=== PATIENT | female | born 1985 | race Hispanic/Latino ===

== ENCOUNTER 2016-10-21 23:22 | Emergency (ER) | payer OTHER, SELFPAY ==
[2016-10-21 23:59] LABS: Bacteria/HPF 4+ HPF (None Seen); Bilirubin Negative (Negative); Blood, Urine Trace (Negative); Clarity Slightly Cloudy (Clear); Glucose, Urine (Dipstick) Negative (Negative); Leukocyte Small (Negative); Nitrite Negative (Negative); Protein, Urine (Dipstick) Negative (Neg-Trace); Renal Epithelial 0-3 HPF (0-3); Transitional Epithelial 0-3 HPF (0-3); Urobilinogen 0.2 mg/dL (0.2-1.0); WBC/HPF 21-50 HPF (0-3); Yeast-All Forms 1+ HPF (None Seen); pH, Urine 7.5 (5.0-9.0)
[2016-10-22] MEDS ORDERED: Ondansetron ODT 4 MG TAB ONE (00:23)
[2016-10-22] MEDS ORDERED: Nitrofurantoin Monohyd/M-Cryst 100 MG CAP ONE (00:23)
--- NOTE | 2016-10-22 00:46 | ERRECORD ---
[facility] EMERGENCY RECORD HPI ABDOMINAL PAIN (SatOct 22, 2016 00:12 LLDO) CHIEF COMPLAINTS: Patient presents for evaluation of abdominal pain, Denies abdominal distention, Denies bloating, Patient presents for evaluation of 22 WEEKS WITH SEVERAL DAYS OF SUPRAPUBIC PAIN AND URINARY FREQUENCY. HISTORIAN: History provided by patient, History provided by patient's spouse, History obtained with the assistance of a cinder block maker, DANA ENRIQUEZ RN. LOCATION FEMALE: Symptoms are localized. QUALITY: Pain is dull in nature, described as aching. SEVERITY: Maximum severity of symptoms moderate, Currently symptoms are moderate. TIME COURSE: Gradual onset of symptoms, Symptoms are constant, Symptoms are worsening. ASSOCIATED WITH FEMALE: No associated constipation, No associated diarrhea, No associated fever, No associated loss of appetite, No associated melena, Associated with nausea, Associated with urinary tract infection signs or symptoms, frequency, No associated vomiting. RELIEVED BY: Patient's condition relieved by nothing. RISK FACTORS FEMALE: No ectopic risk factors present, No abdominal aortic aneurysm risk factors, No coronary artery disease risk factors. ROS CONSTITUTIONAL: Historian reports fatigue, reports malaise. (SatOct 22, 2016 00:16 LLDO) EYES: Negative eye review of systems, Historian denies eye pain, denies eye redness, denies eye discharge. (SatOct 22, 2016 00:19 LLDO) ENT: Negative ears, nose, throat review of systems, Historian denies epistaxis, denies rhinorrhea, denies sinus pain, denies sore throat. (SatOct 22, 2016 00:19 LLDO) CARDIOVASCULAR: Negative cardiovascular review of systems, Historian denies chest pain, no radiation, Historian denies diaphoresis, denies syncope. (SatOct 22, 2016 00:19 LLDO) RESPIRATORY: Negative respiratory review of systems, Historian denies cough, denies shortness of breath, denies sputum. (SatOct 22, 2016 00:19 LLDO) GI: Historian reports abdominal pain, denies constipation, denies diarrhea, denies hematemesis, denies hematochezia, denies jaundice, denies melena, reports nausea, denies stool changes, denies vomiting. (SatOct 22, 2016 00:16 LLDO) GENITOURINARY FEMALE: Negative genitourinary review of systems, Historian denies dysuria, denies frequency, denies urgency. (SatOct 22, 2016 00:19 LLDO) MUSCULOSKELETAL: Negative musculoskeletal review of systems, Historian denies arthralgias, denies back pain, denies injury, denies myalgias, denies neck pain. (SatOct 22, 2016 00:19 LLDO) SKIN: Negative skin review of systems, Historian denies &a-1R&a+25V*p+0X*q9520Q*c202B*c15G*c2P*p-0X&a-25V&a+1R Name: Loree Desouza : 1985 F31 MedRec: [id number] AcctNum: [id number] Prepared: SatOct 22, 2016 01:10 by Interface Page 1 of 4 pMD [facility] EMERGENCY RECORD cellulitis, denies rash, denies skin changes, denies skin lesions. (SatOct 22, 2016 00:19 LLDO) NEUROLOGIC: Negative neurologic review of systems, Historian denies confusion, denies dizziness, denies focal weakness, denies mental status changes. (SatOct 22, 2016 00:19 LLDO) HEMO/LYMPHATIC: Normal hematologic/lymphatic system review, Historian denies abnormal blood clotting, denies gum bleeding, denies petechiae. (SatOct 22, 2016 00:19 LLDO) ALLERGIC/IMMUNOLOGIC: Normal allergy/immunologic system review, Historian denies eczema, denies environmental allergies, denies food allergies. (SatOct 22, 2016 00:19 LLDO) PSYCHIATRIC: Negative psychiatric review of systems, Historian denies alcohol abuse, denies anxiety, denies depression, denies drug abuse, denies hallucinations. (SatOct 22, 2016 00:19 LLDO) NOTES: All systems reviewed, negative except as described above. (SatOct 22, 2016 00:16 LLDO) PAST MEDICAL HISTORY MEDICAL HISTORY: No past medical history. (23:30 JDEA) FEMALE SURGICAL HISTORY: Patient has no surgical history. (23:30 JDEA) PSYCHIATRIC HISTORY: No previous psychiatric history. (23:30 JDEA) SOCIAL HISTORY: Patient denies alcohol use, Patient denies drug use, Patient has no smoking history, Lives at home, with family. (23:30 JDEA) NOTES: Nursing records reviewed, Agree with nursing records, Medication list reviewed. (SatOct 22, 2016 00:18 LLDO) KNOWN ALLERGIES NKDA CURRENT MEDICATIONS (23:35 JDEA) None VITAL SIGNS VITAL SIGNS: BP: 104/68, Pulse: 118, Resp: 20, Pain: 10, O2 sat: 100 on Room Air, Time: 10/21/2016 23:29. (23:29 JDEA) BP: 110/70, Pulse: 98, Resp: 18, Temp: 98.2, Pain: 10, O2 sat: 100 on RA, Time: 10/22/2016 00:41. (SatOct 22, 2016 00:41 JDEA) PHYSICAL EXAM CONSTITUTIONAL: Vital Signs Reviewed, Patient afebrile, Pulse, tachycardic, 118, Blood pressure normal, Respiratory rate normal, Patient appears non toxic, Patient appears, in moderate pain distress, Patient alert and oriented to person, place and time, Nursing notes reviewed. (SatOct 22, 2016 00:17 LLDO) HEAD: Head exam normal, Head exam included findings of head atraumatic, normocephalic. (SatOct 22, 2016 00:19 LLDO) &a-1R&a+25V*p+0X*v5385S*c202B*c15G*c2P*p-0X&a-25V&a+1R Name: Loree Desouza : 1985 F31 MedRec: [id number] AcctNum: [id number] Prepared: SatOct 22, 2016 01:10 by Interface Page 2 of 4 pMD [facility] EMERGENCY RECORD EYES: Eye exam normal, Eye exam included findings of eyelids normal to inspection, Pupils equally round and reactive to light, Extraocular muscles intact. (SatOct 22, 2016 00:19 LLDO) ENT: ENT exam normal, Ear exam normal, Nose exam normal. (SatOct 22, 2016 00:19 LLDO) NECK: Neck exam normal, Neck exam included findings of normal range of motion, Trachea midline, no meningeal signs, no tenderness. (SatOct 22, 2016 00:19 LLDO) RESPIRATORY CHEST: Respiratory and chest exam normal, Respiratory exam included findings of, Chest exam included findings of chest movement symmetrical, Chest expansion equal. (SatOct 22, 2016 00:19 LLDO) CARDIOVASCULAR: Cardiovascular assessment normal, Cardiovascular exam included findings of heart rate regular rate and rhythm, Heart sounds normal. (SatOct 22, 2016 00:19 LLDO) ABDOMEN FEMALE: Abdominal exam included findings of abdomen tender, to the suprapubic region, mild intensity, Bowel sounds normal, Liver normal, Spleen normal, no distension, no mass, no pulsatile masses, no peritoneal signs, Rovsing's sign absent, uterus size appropriate for dates. (SatOct 22, 2016 00:17 LLDO) BACK: Back exam normal, Back exam included findings of normal inspection, range of motion normal. (SatOct 22, 2016 00:19 LLDO) UPPER EXTREMITY: Upper extremity exam normal, Upper extremity exam included findings of inspection normal, Range of motion normal. (SatOct 22, 2016 00:19 LLDO) LOWER EXTREMITY: Lower extremity exam normal, Lower extremity exam included findings of inspection normal, Range of motion normal. (SatOct 22, 2016 00:19 LLDO) NEURO: Neuro exam normal, Neuro exam findings include patient oriented to person, place and time, Speech normal, Nivia coma scale 15. (SatOct 22, 2016 00:19 LLDO) SKIN: Skin exam normal, Skin exam included findings of skin warm, dry, and normal in color, no rash. (SatOct 22, 2016 00:19 LLDO) PSYCHIATRIC: Psychiatric exam normal, Psychiatric exam included findings of patient oriented to person place and time, Normal affect. (SatOct 22, 2016 00:19 LLDO) MEDICATION ADMINISTRATION SUMMARY Drug Name: Macrobid, Dose Ordered: 100 mg, Route: Oral, Status: Given, Time: 00:29 10/22/2016, Drug Name: Zofran ODT, Dose Ordered: 8 mg, Route: Sublingual, Status: Given, Time: 00:10/22/2016, Detailed record available in Medication Service section. PROBLEM LIST No recorded problems DIAGNOSIS (SatOct 22, 2016 00:22 LLDO) &a-1R&a+25V*p+0X*d9176G*c202B*c15G*c2P*p-0X&a-25V&a+1R Name: Loree Desouza : 1985 F31 MedRec: [id number] AcctNum: [id number] Prepared: SatOct 22, 2016 01:10 by Interface Page 3 of 4 pMD [facility] EMERGENCY RECORD FINAL: PRIMARY: UTI SITE NOT SPECIFIED, ADDITIONAL: RELATED COND UNS UNS TRI. PRESCRIPTION (SatOct 22, 2016 00:22 LLDO) Macrobid: CAPSULE (HARD, SOFT, ETC.) : 100 mg : ORAL : Quantity: 1 Unit: tab(s) Route: ORAL Schedule: 2 times a day (before meals) Dispense: 20 May substitute. Refills: No Refills . NOTES: [place] No Refills. Zofran ODT: TABLET, RAPID DISSOLVE : 4 mg : ORAL : Quantity: 1-2 Unit: tab(s) Route: ORAL Schedule: every 6 hours PRN Dispense: 20 May substitute. Refills: No Refills . NOTES: DISSOLVE UNDER TONGUE [place] No Refills. DISPOSITION PATIENT: Disposition Type: Discharge, Disposition: *Discharge Home. (SatOct 22, 2016 00:22 LLDO) Patient left the department. (SatOct 22, 2016 00:41 YURI) Rodriguez: YURI=PRASANTH Enriquez, Dana SUE=MD Mera, Santosh &a-1R&a+25V*p+0X*p4065D*c202B*c15G*c2P*p-0X&a-25V&a+1R Name: Loree Desouza : 1985 F31 MedRec: [id number] AcctNum: [id number] Prepared: SatOct 22, 2016 01:10 by Interface Page 4 of 4 pMD MTDD
--- NOTE | 2016-10-22 00:53 | PICIS ---
[facility] EMERGENCY RECORD TRIAGE (Harvey Oct 21, 2016 23:29 JDEA) TRIAGE NOTES: pt in for ab pain and states feels like she has fever, is currently . (Harvey Oct 21, 2016 23:29 JDEA) PATIENT: NAME: Loree Desouza, AGE: 31, GENDER: female, : Sat1985, TIME OF GREET: SatOct 21, 2016 23:22, PREFERRED LANGUAGE: Norwegian, ETHNICITY: or , ECODE BILLING MAP: [facility], Zip Code: [address], KG WEIGHT: 64.41, , , PERSON ID: [id number], PCP: Yolanda HOUSTON ROLAND. (Harvey Oct 21, 2016 23:29 JDEA) PHONE: . (SatOct 22, 2016 00:03) COMPLAINT: STOMACH PAINS. (Harvey Oct 21, 2016 23:29 JDEA) ADMISSION: URGENCY: 3 Urgent, ADMISSION SOURCE: Home, TRANSPORT: Walk-in, BED: TRIAGE. (Harvey Oct 21, 2016 23:29 JDEA) IMMUNIZATIONS: Flu vaccine up to date, Tetanus immunization up to date, Pneumococcal vaccine not up to date. (23:30 JDEA) TRIAGE SCREENING: Patient denies suicidal ideation, Patient denies presence of domestic violence. (23:30 JDEA) LMP: Last menstrual period: 05/21/2016, Estimated conception 06/04/2016, Estimated due date 02/25/2017, Estimated age 22 weeks, 0 days, , P: 3, AB: 2. (23:30 JDEA) PROVIDERS: TRIAGE NURSE: Dana Enriquez RN. (Harvey Oct 21, 2016 23:29 JDEA) VITAL SIGNS: BP 104/68, Pulse 118, Resp 20, Pain 10, O2 Sat 100, on Room Air, Time 10/21/2016 23:29. (23:29 JDEA) KNOWN ALLERGIES NKDA CURRENT MEDICATIONS (23:35 JDEA) None VITAL SIGNS VITAL SIGNS: BP: 104/68, Pulse: 118, Resp: 20, Pain: 10, O2 sat: 100 on Room Air, Time: 10/21/2016 23:29. (23:29 JDEA) BP: 110/70, Pulse: 98, Resp: 18, Temp: 98.2, Pain: 10, O2 sat: 100 on RA, Time: 10/22/2016 00:41. (SatOct 22, 2016 00:41 JDEA) NURSING ASSESSMENT: ABDOMEN (23:41 JDEA) CONSTITUTIONAL: Complex assessment performed, Patient arrives ambulatory, Gait steady, History obtained from patient, Patient appears, uncomfortable, Patient cooperative, Patient alert, Oriented to person, place and time, Skin warm, Skin dry, Skin normal in color, Mucous membranes pink, Mucous membranes moist, Patient complains of ABDOMINAL PAIN, pt in for complaints of diffuse abdominal pain and chills, states she feels like she has a fever, states that she feels uncomfortable. PAIN: aching pain, diffuse, constant, on a scale 0-10 patient rates pain as 10. ABDOMEN: Abdomen assessment findings include abdomen symmetrical, &a-1R&a+25V*p+0X*b0920M*c202B*c15G*c2P*p-0X&a-25V&a+1R Name: Loree Desouza : 1985 F31 MedRec: [id number] AcctNum: [id number] Prepared: SatOct 22, 2016 01:10 by Interface Page 1 of 8 pMD [facility] EMERGENCY RECORD Abdomen, pt with child, no associated nausea, no associated vomiting, no associated diarrhea, no associated constipation. LMP: First day last menstrual period, Last period started on 05/21/2016, Milestones: Estimated Conception: 06/04/2016 Estimated Due date: 02/25/2017 Estimated age: 22 weeks, 0 days, Patient confirms . GENITOURINARY FEMALE: Female genitourinary assessment findings include external genitalia normal. NOTES: Patient tolerated procedure well. SAFETY: Side rails up, Cart/Stretcher in lowest position, Family at bedside, Call light within reach, Hospital ID band on. NURSING PROCEDURE: HUMAN RESOURCES SUPPORT SPECIALIST (23:35 JDEA) PATIENT IDENTIFIER: Patient actively involved in identification process, Patient's identity verified by patient stating name, Patient's identity verified by patient stating date, Patient's identity verified by hospital ID bracelet. HUMAN RESOURCES SUPPORT SPECIALIST: Cardiac monitoring indicated for ER INDICATION, Patient placed on groundwater monitoring technician, Patient placed on non-invasive blood pressure monitor, Patient placed on continuous pulse oximetry. FOLLOW-UP: After procedure, alarms set and on. NOTES: Patient tolerated procedure well. SAFETY: Side rails up, Cart/Stretcher in lowest position, Family at bedside, Call light within reach, Hospital ID band on. NURSING PROCEDURE: DISCHARGE NOTE (SatOct 22, 2016 00:41 JDEA) DISCHARGE: Patient discharged to home, ambulating without assistance, family driving, accompanied by parent, Summary of Care printed/ provided, Patient requested and was provided an electronic copy of Discharge Instructions, Transition record given to patient, Discharge instructions given to patient, Simple or moderate discharge teaching performed, Prescriptions given and instructions on side effects given, Above person(s) verbalized understanding of discharge instructions and follow-up care, Patient treated and evaluated by physician. BELONGINGS: Belongings and valuables with patient at time of discharge include:, Belongings remain with patient. VITAL SIGNS: BP: 110, / 70, Pulse: 98, Resp: 18, Temp: 98.2, Pain: 10, O2 sat: 100, on: RA, Time: 0041. NURSING PROCEDURE: HEART TONES (SatOct 22, 2016 00:30 JDEA) PATIENT IDENTIFIER: Patient actively involved in identification process, Patient's identity verified by patient stating name, Patient's identity verified by patient stating date, Patient's identity verified by hospital ID bracelet. HEART TONES: heart tones indicated for er indication, heart toned obtained with doppler, by Ash, heart rate &a-1R&a+25V*p+0X*c4381N*c202B*c15G*c2P*p-0X&a-25V&a+1R Name: Loree Desouza : 1985 F31 MedRec: [id number] AcctNum: [id number] Prepared: SatOct 22, 2016 01:10 by Interface Page 2 of 8 pMD [facility] EMERGENCY RECORD 153. FOLLOW-UP: After procedure, results given to Dr. RAMESH Tesfaye. NOTES: Patient tolerated procedure well. SAFETY: Side rails up, Cart/Stretcher in lowest position, Family at bedside, Call light within reach, Hospital ID band on. NURSING PROCEDURE: URINE COLLECTION (23:35 JDEA) PATIENT IDENTIFIER: Patient actively involved in identification process, Patient's identity verified by patient stating name, Patient's identity verified by patient stating date, Patient's identity verified by hospital ID bracelet. URINE COLLECTION FEMALE: Urine collection indicated for ER INDICATION, Notes: CUP TO PT. NOTES: Patient tolerated procedure well. SAFETY: Side rails up, Cart/Stretcher in lowest position, Family at bedside, Call light within reach, Hospital ID band on. ORDER DETAILS Order Name: HUMAN RESOURCES SUPPORT SPECIALIST ED, Status: Done, Time: 23:41 10/21/2016, User: YURI, - Ordered for: Ersmdo, ., - Entered by: PRASANTH Enriquez, [facility] Oct 21, 2016 23:37, - Quantity: 1, Order Name: Diet: Nothing by Mouth (NPO), Status: Done, Time: 23:41 10/21/2016, User: YURI, - Ordered for: Ersmdo, ., - Entered by: PRASANTH Enriquez, [facility] Oct 21, 2016 23:37, - Quantity: 1, Order Name: ERRT Pulse Oximeter ER, Status: Active, Time: 23:37 10/21/2016, User: YURI, - Ordered for: Ersmdo, ., - Entered by: PRASANTH Enriquez, [facility] Oct 21, 2016 23:37, - Quantity: 1, Order Name: Urinalysis w/ Rflx Microscopic, Status: Active, Time: 23:37 10/21/2016, User: YURI, - Ordered for: Ersmdo, ., - Entered by: PRASANTH Enriquez, [facility] Oct 21, 2016 23:37, - Quantity: 1. MEDICATION ADMINISTRATION SUMMARY Drug Name: Macrobid, Dose Ordered: 100 mg, Route: Oral, Status: Given, Time: 00:29 10/22/2016, Drug Name: Zofran ODT, Dose Ordered: 8 mg, Route: Sublingual, Status: Given, Time: 00:29 10/22/2016, Detailed record available in Medication Service section. MEDICATION SERVICE (SatOct 22, 2016 00:29 LLDO) Macrobid: Order: Macrobid (nitrofurantoin/nitrofurantoin &a-1R&a+25V*p+0X*o9355N*c202B*c15G*c2P*p-0X&a-25V&a+1R Name: Loree Desouza : 1985 F31 MedRec: [id number] AcctNum: [id number] Prepared: SatOct 22, 2016 01:10 by Interface Page 3 of 8 pMD [facility] EMERGENCY RECORD macrocrystal) - Dose: 100 mg : Oral Schedule: Now Ordered by: Santosh Tesfaye MD Entered by: Santosh Tesfaye MD SatOct 22, 2016 00:19 , Acknowledged by: Dana Enriquez RN SatOct 22, 2016 00:22 Documented as given by: Dana Enriquez RN SatOct 22, 2016 00:29 Patient, Medication, Dose, Route and Time verified prior to administration. Amount given: 100mg, Site: Medication administered P.O., Correct patient, time, route, dose and medication confirmed prior to administration, Patient advised of actions and side-effects prior to administration, Allergies confirmed and medications reviewed prior to administration, Patient in position of comfort, Side rails up, Cart in lowest position, Family at bedside, Call light in reach. Zofran ODT: Order: Zofran ODT (ondansetron) - Dose: 8 mg : Sublingual Schedule: Now Ordered by: Santosh Tesfaye MD Entered by: Santosh Tesfaye MD SatOct 22, 2016 00:20 , Acknowledged by: Dana Enriquez RN SatOct 22, 2016 00:22 Documented as given by: Dana Enriquez RN SatOct 22, 2016 00:29 Patient, Medication, Dose, Route and Time verified prior to administration. Amount given: 8mg, Site: Medication administered S.L., Correct patient, time, route, dose and medication confirmed prior to administration, Patient advised of actions and side-effects prior to administration, Allergies confirmed and medications reviewed prior to administration, Patient in position of comfort, Side rails up, Cart in lowest position, Family at bedside, Call light in reach. HPI ABDOMINAL PAIN (SatOct 22, 2016 00:12 LLDO) CHIEF COMPLAINTS: Patient presents for evaluation of abdominal pain, Denies abdominal distention, Denies bloating, Patient presents for evaluation of 22 WEEKS WITH SEVERAL DAYS OF SUPRAPUBIC PAIN AND URINARY FREQUENCY. HISTORIAN: History provided by patient, History provided by patient's spouse, History obtained with the assistance of a sports anchor, DANA ENRIQUEZ RN. LOCATION FEMALE: Symptoms are localized. QUALITY: Pain is dull in nature, described as aching. SEVERITY: Maximum severity of symptoms moderate, Currently symptoms are moderate. TIME COURSE: Gradual onset of symptoms, Symptoms are constant, Symptoms are worsening. ASSOCIATED WITH FEMALE: No associated constipation, No associated diarrhea, No associated fever, No associated loss of appetite, No associated melena, Associated with nausea, Associated with urinary tract infection signs or symptoms, frequency, No associated vomiting. RELIEVED BY: Patient's condition relieved by nothing. RISK FACTORS FEMALE: No ectopic risk factors &a-1R&a+25V*p+0X*p4664W*c202B*c15G*c2P*p-0X&a-25V&a+1R Name: Loree Desouza : 1985 F31 MedRec: [id number] AcctNum: [id number] Prepared: SatOct 22, 2016 01:10 by Interface Page 4 of 8 pMD [facility] EMERGENCY RECORD present, No abdominal aortic aneurysm risk factors, No coronary artery disease risk factors. ROS CONSTITUTIONAL: Historian reports fatigue, reports malaise. (SatOct 22, 2016 00:16 LLDO) EYES: Negative eye review of systems, Historian denies eye pain, denies eye redness, denies eye discharge. (SatOct 22, 2016 00:19 LLDO) ENT: Negative ears, nose, throat review of systems, Historian denies epistaxis, denies rhinorrhea, denies sinus pain, denies sore throat. (SatOct 22, 2016 00:19 LLDO) CARDIOVASCULAR: Negative cardiovascular review of systems, Historian denies chest pain, no radiation, Historian denies diaphoresis, denies syncope. (SatOct 22, 2016 00:19 LLDO) RESPIRATORY: Negative respiratory review of systems, Historian denies cough, denies shortness of breath, denies sputum. (SatOct 22, 2016 00:19 LLDO) GI: Historian reports abdominal pain, denies constipation, denies diarrhea, denies hematemesis, denies hematochezia, denies jaundice, denies melena, reports nausea, denies stool changes, denies vomiting. (SatOct 22, 2016 00:16 LLDO) GENITOURINARY FEMALE: Negative genitourinary review of systems, Historian denies dysuria, denies frequency, denies urgency. (SatOct 22, 2016 00:19 LLDO) MUSCULOSKELETAL: Negative musculoskeletal review of systems, Historian denies arthralgias, denies back pain, denies injury, denies myalgias, denies neck pain. (SatOct 22, 2016 00:19 LLDO) SKIN: Negative skin review of systems, Historian denies cellulitis, denies rash, denies skin changes, denies skin lesions. (SatOct 22, 2016 00:19 LLDO) NEUROLOGIC: Negative neurologic review of systems, Historian denies confusion, denies dizziness, denies focal weakness, denies mental status changes. (SatOct 22, 2016 00:19 LLDO) HEMO/LYMPHATIC: Normal hematologic/lymphatic system review, Historian denies abnormal blood clotting, denies gum bleeding, denies petechiae. (SatOct 22, 2016 00:19 LLDO) ALLERGIC/IMMUNOLOGIC: Normal allergy/immunologic system review, Historian denies eczema, denies environmental allergies, denies food allergies. (SatOct 22, 2016 00:19 LLDO) PSYCHIATRIC: Negative psychiatric review of systems, Historian denies alcohol abuse, denies anxiety, denies depression, denies drug abuse, denies hallucinations. (SatOct 22, 2016 00:19 LLDO) NOTES: All systems reviewed, negative except as described above. (SatOct 22, 2016 00:16 LLDO) PAST MEDICAL HISTORY MEDICAL HISTORY: No past medical history. (23:30 JDEA) FEMALE SURGICAL HISTORY: Patient has no surgical history. (23:30 &a-1R&a+25V*p+0X*k3526E*c202B*c15G*c2P*p-0X&a-25V&a+1R Name: Loree Desouza : 1985 F31 MedRec: [id number] AcctNum: [id number] Prepared: SatOct 22, 2016 01:10 by Interface Page 5 of 8 D [facility] EMERGENCY RECORD JDEA) PSYCHIATRIC HISTORY: No previous psychiatric history. (23:30 JDEA) SOCIAL HISTORY: Patient denies alcohol use, Patient denies drug use, Patient has no smoking history, Lives at home, with family. (23:30 JDEA) NOTES: Nursing records reviewed, Agree with nursing records, Medication list reviewed. (SatOct 22, 2016 00:18 LLDO) PHYSICAL EXAM CONSTITUTIONAL: Vital Signs Reviewed, Patient afebrile, Pulse, tachycardic, 118, Blood pressure normal, Respiratory rate normal, Patient appears non toxic, Patient appears, in moderate pain distress, Patient alert and oriented to person, place and time, Nursing notes reviewed. (SatOct 22, 2016 00:17 LLDO) HEAD: Head exam normal, Head exam included findings of head atraumatic, normocephalic. (SatOct 22, 2016 00:19 LLDO) EYES: Eye exam normal, Eye exam included findings of eyelids normal to inspection, Pupils equally round and reactive to light, Extraocular muscles intact. (SatOct 22, 2016 00:19 LLDO) ENT: ENT exam normal, Ear exam normal, Nose exam normal. (SatOct 22, 2016 00:19 LLDO) NECK: Neck exam normal, Neck exam included findings of normal range of motion, Trachea midline, no meningeal signs, no tenderness. (SatOct 22, 2016 00:19 LLDO) RESPIRATORY CHEST: Respiratory and chest exam normal, Respiratory exam included findings of, Chest exam included findings of chest movement symmetrical, Chest expansion equal. (SatOct 22, 2016 00:19 LLDO) CARDIOVASCULAR: Cardiovascular assessment normal, Cardiovascular exam included findings of heart rate regular rate and rhythm, Heart sounds normal. (SatOct 22, 2016 00:19 LLDO) ABDOMEN FEMALE: Abdominal exam included findings of abdomen tender, to the suprapubic region, mild intensity, Bowel sounds normal, Liver normal, Spleen normal, no distension, no mass, no pulsatile masses, no peritoneal signs, Rovsing's sign absent, uterus size appropriate for dates. (SatOct 22, 2016 00:17 LLDO) BACK: Back exam normal, Back exam included findings of normal inspection, range of motion normal. (SatOct 22, 2016 00:19 LLDO) UPPER EXTREMITY: Upper extremity exam normal, Upper extremity exam included findings of inspection normal, Range of motion normal. (SatOct 22, 2016 00:19 LLDO) LOWER EXTREMITY: Lower extremity exam normal, Lower extremity exam included findings of inspection normal, Range of motion normal. (SatOct 22, 2016 00:19 LLDO) NEURO: Neuro exam normal, Neuro exam findings include patient oriented to person, place and time, Speech normal, Nivia coma scale 15. (SatOct 22, 2016 00:19 LLDO) &a-1R&a+25V*p+0X*k1715Q*c202B*c15G*c2P*p-0X&a-25V&a+1R Name: Loree Desouza : 1985 F31 MedRec: [id number] AcctNum: [id number] Prepared: SatOct 22, 2016 01:10 by Interface Page 6 of 8 pMD [facility] EMERGENCY RECORD SKIN: Skin exam normal, Skin exam included findings of skin warm, dry, and normal in color, no rash. (SatOct 22, 2016 00:19 LLDO) PSYCHIATRIC: Psychiatric exam normal, Psychiatric exam included findings of patient oriented to person place and time, Normal affect. (SatOct 22, 2016 00:19 LLDO) EVENTS TRANSFER: Triage to Emergency Triage. (SatOct 21, 2016 23:29 JDEA) Emergency Triage to Main ED -04. (23:30 JDEA) Removed from Emergency Main ED -04. (SatOct 22, 2016 00:41 JDEA) PROBLEM LIST No recorded problems DIAGNOSIS (SatOct 22, 2016 00:22 LLDO) FINAL: PRIMARY: UTI SITE NOT SPECIFIED, ADDITIONAL: RELATED COND UNS UNS TRI. DISPOSITION PATIENT: Disposition Type: Discharge, Disposition: *Discharge Home. (SatOct 22, 2016 00:22 LLDO) Patient left the department. (SatOct 22, 2016 00:41 JDEA) INSTRUCTION (SatOct 22, 2016 00:24 LLDO) DISCHARGE: UTI CYSTITIS FEMALE ADULT, UTI PYELONEPHRITIS FEMALE ADULT. FOLLOWUP: Yolanda HOUSTON, PATY, [facility], [address], [place] [address], , Follow up with Primary Care Physician in 5 days. SPECIAL: Follow-up with your OB doctor. PRESCRIPTION (SatOct 22, 2016 00:22 LLDO) Macrobid: CAPSULE (HARD, SOFT, ETC.) : 100 mg : ORAL : Quantity: 1 Unit: tab(s) Route: ORAL Schedule: 2 times a day (before meals) Dispense: 20 May substitute. Refills: No Refills . NOTES: Norwegian No Refills. Zofran ODT: TABLET, RAPID DISSOLVE : 4 mg : ORAL : Quantity: 1-2 Unit: tab(s) Route: ORAL Schedule: every 6 hours PRN Dispense: 20 May substitute. Refills: No Refills . NOTES: DISSOLVE UNDER TONGUE Norwegian No Refills. IMAGING *DISCHARGE INSTRUCTIONS RECEIPT: Image captured from scanner. (SatOct 22, 2016 00:41 JDEA) &a-1R&a+25V*p+0X*z9194X*c202B*c15G*c2P*p-0X&a-25V&a+1R Name: Loree Desouza : 1985 F31 MedRec: [id number] AcctNum: [id number] Prepared: SatOct 22, 2016 01:10 by Interface Page 7 of 8 pMD [facility] EMERGENCY RECORD Page 2 added. Image captured from scanner. (SatOct 22, 2016 00:41 JDEA) *SUPPLY CHARGE SHEET: Image captured from scanner. (SatOct 22, 2016 00:42 JDEA) ADMIN (SatOct 22, 2016 01:03 LINETTE) DIGITAL SIGNATURE: MD eTsfaye Lloyd. Rodriguez: YURI=Marcelo, RNDana LL=MD Tesfaye Lloyd &a-1R&a+25V*p+0X*n0842L*c202B*c15G*c2P*p-0X&a-25V&a+1R Name: Loree Desouza : 1985 F31 MedRec: [id number] AcctNum: [id number] Prepared: SatOct 22, 2016 01:10 by Interface Page 8 of 8 pMD [facility] MEDICATION RECONCILIATION You were seen in the Emergency Department on: SatOct 21, 2016 KNOWN ALLERGIES NKDA MEDICATIONS GIVEN WHILE IN THE EMERGENCY DEPARTMENT Macrobid (nitrofurantoin/nitrofurantoin macrocrystal) - Dose: 100 milligram(s) : Oral Zofran ODT (ondansetron) - Dose: 8 milligram(s) : Sublingual HOME MEDICATIONS None Notes from the emergency department Reviewed with family Reviewed with patient PRESCRIPTIONS (2) Printed (2) Macrobid : CAPSULE (HARD, SOFT, ETC.) : 100 mg : ORAL Quantity: 1, Unit: tab(s), Route: ORAL, Schedule: 2 times a day (before meals), Dispense: 20 &a-1R&a+25V*p+0X*o7821E*c202B*c15G*c2P*p-0X&a-25V&a+1R Name: Loree Desouza : 1985 F31 MedRec: [id number] AcctNum: [id number] Prepared: SatOct 22, 2016 01:10 by Interface pMD KARMEN
== END 2016-10-22 00:41 | disposition home or self-care (01) ==
LOC: MADERS 23:22
DX: O23.42 Unspecified infection of urinary tract in pregnancy, second trimester (principal); Z3A.22 22 weeks gestation of pregnancy
CPT/HCPCS: 81001; 87077; 87086; Q0162

== ENCOUNTER 2016-11-16 13:50 | Outpatient (CLI) | payer OTHER | END 2016-11-16 13:51 | disposition home or self-care (01) | LOC: MADLAB 13:50 | PROVIDERS: ATTEND Family Medicine | DX: Z34.83 Encounter for supervision of other normal pregnancy, third trimester (principal) | CPT/HCPCS: 36415; 87086 ==

== ENCOUNTER 2016-12-05 01:17 | Emergency (ER) | payer OTHER ==
[2016-12-05 02:22] LABS: #Basophils 0.1 thou/uL (0.0-0.2); #Eosinphils 0.4 thou/uL (0.0-0.7); #Lymphocytes 3.2 thou/uL (1.20-3.40); #Monocytes 1.1 thou/uL (0.11-0.59); #Neutrophils 7.8 thou/uL (1.40-6.50); %Eosinophils 2.9 % (0.0-10.0); %Lymphocytes 25.3 % (21.0-51.0); %Monocytes 8.8 % (0.0-10.0); Hemoglobin 9.9 g/dL (12.0-16.0); Mean Corpuscular HGB CONC 33.2 g/dL (32.0-36.0); Mean Corpuscular Hemoglobin 26.2 pg (27.0-31.0); Mean Platelet Volume 6.5 fL (7.4-10.4); Platelet Count 444 thou/uL (130-400); RBC Distribution Width 12.4 % (11.5-14.5); Red Blood Cell (RBC) Count 3.78 mill/uL (4.20-5.40); White Blood Cell (WBC) Count 12.6 thou/uL (4.8-10.8)
[2016-12-05 02:37] LABS: ALT (SGPT) 19 U/L (0-55); AST (SGOT) 63 U/L (5-34); Albumin 2.9 g/dL (3.5-5.0); Alkaline Phosphatase 172 U/L (40-150); Anion Gap 16 mmol/L (10-20); BUN (Urea Nitrogen) 4 mg/dL (7.0-18.7); Bilirubin, Total 0.5 mg/dL (0.2-1.2); Calc. Creatinine Clearance 0 mL/min (70-130); Calcium 8.5 mg/dL (7.8-10.44); Carbon Dioxide 20 mmol/L (22-29); Chloride 107 mmol/L (98-107); Estimated GFR-MDRD Greater than 90; Globulin 3.3 g/dL (2.4-3.5); Glucose 107 mg/dL (70-105); Potassium 3.7 mmol/L (3.5-5.1); Protein, Total 6.2 g/dL (6.0-8.3); Sodium 139 mmol/L (136-145)
[2016-12-05] MEDS ORDERED: Sodium Chloride 0.9% 1,000 ML BAG ONE (09:46)
== END 2016-12-05 02:40 | disposition short-term general hospital (02) ==
LOC: MADERS 01:17
DX: O99.89 Other specified diseases and conditions complicating pregnancy, childbirth and the puerperium (principal); R10.30 Lower abdominal pain, unspecified; Z3A.32 32 weeks gestation of pregnancy
CPT/HCPCS: 80053; 83690; 85025; 86900; 86901; 96360; J7050

== ENCOUNTER 2016-12-14 13:12 | Outpatient (CLI) | payer OTHER | END 2016-12-14 13:13 | disposition home or self-care (01) | LOC: MADLABBHPM 13:12 | PROVIDERS: ATTEND Family Medicine | DX: Z34.83 Encounter for supervision of other normal pregnancy, third trimester (principal) | CPT/HCPCS: 36415; 87086 ==

== ENCOUNTER 2016-12-28 16:38 | Outpatient (CLI) | payer OTHER | END 2016-12-28 16:39 | disposition home or self-care (01) | LOC: MADLABBHPM 16:38 | PROVIDERS: ATTEND Family Medicine | DX: Z34.83 Encounter for supervision of other normal pregnancy, third trimester (principal) | CPT/HCPCS: 87086 ==

== ENCOUNTER 2017-01-11 14:22 | Outpatient (CLI) | payer OTHER | END 2017-01-11 14:23 | disposition home or self-care (01) | LOC: MADLABBHPM 14:22 | PROVIDERS: ATTEND Family Medicine | DX: Z34.83 Encounter for supervision of other normal pregnancy, third trimester (principal) | CPT/HCPCS: 36415; 87081; 87086 ==

== ENCOUNTER 2017-07-05 00:34 | Emergency (ER) | payer OTHER, SELFPAY ==
[2017-07-05] MEDS ORDERED: Pantoprazole 40 MG VIAL ONE (01:06)
[2017-07-05] MEDS ORDERED: Ondansetron HCl/PF 4 MG/2 ML Vial ONE (01:06)
[2017-07-05 01:11] LABS: Pregnancy Test - Urine (BHCG) Negative (Negative)
[2017-07-05 01:12] LABS: Pregu Control Background? CLEAR/WHITE (CLR/WHITE); Pregu Control Bar Appear? YES (CONTROL BAR)
[2017-07-05 01:14] LABS: Clarity Hazy (Clear); Leukocyte Moderate (Negative); Nitrite Negative (Negative)
[2017-07-05 01:15] LABS: Bacteria/HPF 1+ HPF (None Seen); Bilirubin Negative (Negative); Blood, Urine Large (Negative); Glucose, Urine (Dipstick) Negative (Negative); Protein, Urine (Dipstick) Trace mg/dL (Neg-Trace); RBC/HPF GREATER THAN 50-TNTC HPF (0-3); Urobilinogen 0.2 mg/dL (0.2-1.0)
[2017-07-05 01:30] LABS: #Basophils 0.2 thou/uL (0.0-0.2); #Eosinphils 0.4 thou/uL (0.0-0.7); #Lymphocytes 3.3 thou/uL (1.20-3.40); #Monocytes 0.9 thou/uL (0.11-0.59); #Neutrophils 8.5 thou/uL (1.40-6.50); %Basophils 1.2 % (0.0-1.0); %Eosinophils 2.9 % (0.0-10.0); %Monocytes 6.8 % (0.0-10.0); %Neutrophils 64.1 % (42.0-75.0); Hemoglobin 13.2 g/dL (12.0-16.0); Mean Corpuscular HGB CONC 33.4 g/dL (32.0-36.0); Mean Corpuscular Hemoglobin 27.4 pg (27.0-31.0); Mean Platelet Volume 6.8 fL (7.4-10.4); Platelet Count 380 thou/uL (130-400); RBC Distribution Width 12.3 % (11.5-14.5); Red Blood Cell (RBC) Count 4.82 mill/uL (4.20-5.40); White Blood Cell (WBC) Count 13.2 thou/uL (4.8-10.8)
[2017-07-05 01:48] LABS: ALT (SGPT) 37 U/L (8-55); AST (SGOT) 19 U/L (5-34); Albumin 3.9 g/dL (3.5-5.0); Alkaline Phosphatase 82 U/L (40-150); Anion Gap 13 mmol/L (10-20); BUN (Urea Nitrogen) 11 mg/dL (7.0-18.7); Bilirubin, Total 0.3 mg/dL (0.2-1.2); Calc. Creatinine Clearance 0 mL/min (70-130); Carbon Dioxide 21 mmol/L (22-29); Chloride 108 mmol/L (98-107); Estimated GFR-MDRD Greater than 90; Glucose 114 mg/dL (70-105); Lipase 22 U/L (8-78); Potassium 3.4 mmol/L (3.5-5.1); Protein, Total 6.9 g/dL (6.0-8.3); Sodium 139 mmol/L (136-145)
[2017-07-05] MEDS ORDERED: Sodium Chloride 0.9% 1,000 ML BAG ONE (07:03)
--- NOTE | 2017-07-05 08:20 | RAD ---
ACUTE ABDOMINAL SERIES: Date: 07/05/17 INDICATION: Abdominal pain. COMPARISON: None. FINDINGS: Lungs are clear. Cardiomediastinal silhouette is normal. No pneumoperitoneum is evident. Bowel gas p attern is unobstructed. No suspicious calcifications evident. No acute osseous abnormalities noted. IMPRESSION: No acute abnormality. POS: [facility]
== END 2017-07-05 02:29 | disposition short-term general hospital (02) ==
LOC: MADERS 00:34
DX: R10.13 Epigastric pain (principal)
CPT/HCPCS: 36415; 74022; 80053; 81001; 81025; 83690; 85025; 96361; 96374; 96375; 96376; C9113; J2270; J2405; J7050

== ENCOUNTER 2017-07-24 02:52 | Emergency (ER) | payer SELFPAY ==
[2017-07-24] MEDS ORDERED: Ketorolac Tromethamine 30 MG/ML VIAL ONE (04:27)
[2017-07-24] MEDS ORDERED: Ondansetron HCl/PF 4 MG/2 ML Vial ONE (04:27)
[2017-07-24] MEDS ORDERED: Morphine 10 MG/ML VIAL ONE ×2 (04:27→07:59)
[2017-07-24 04:47] LABS: Clarity Clear (Clear); pH, Urine 5.5 (5.0-9.0)
[2017-07-24 04:48] LABS: Bacteria/HPF None Seen HPF (None Seen); Bilirubin Negative (Negative); Blood, Urine Small (Negative); Glucose, Urine (Dipstick) Negative (Negative); Leukocyte Trace (Negative); Nitrite Negative (Negative); Protein, Urine (Dipstick) Negative (Neg-Trace); Urobilinogen 0.2 mg/dL (0.2-1.0); WBC/HPF 0-3 HPF (0-3)
[2017-07-24 04:50] LABS: #Neutrophils 14.2 thou/uL (1.40-6.50); %Basophils 0.6 % (0.0-1.0); %Eosinophils 2.6 % (0.0-10.0); %Lymphocytes 12.6 % (21.0-51.0); %Monocytes 5.1 % (0.0-10.0); %Neutrophils 79.1 % (42.0-75.0); Hemoglobin 13.3 g/dL (12.0-16.0); Mean Corpuscular HGB CONC 34.1 g/dL (32.0-36.0); Mean Corpuscular Hemoglobin 28.1 pg (27.0-31.0); Mean Corpuscular Volume 82.4 fL (81.0-99.0); Mean Platelet Volume 6.9 fL (7.4-10.4); Platelet Count 405 thou/uL (130-400); RBC Distribution Width 13.1 % (11.5-14.5); Red Blood Cell (RBC) Count 4.75 mill/uL (4.20-5.40)
[2017-07-24 04:51] LABS: #Basophils 0.1 thou/uL (0.0-0.2); #Eosinphils 0.5 thou/uL (0.0-0.7); #Lymphocytes 2.3 thou/uL (1.20-3.40); #Monocytes 0.9 thou/uL (0.11-0.59); Manual Diff?? NO
[2017-07-24 04:55] LABS: BHCG - Serum Negative (NEGATIVE); Pregs Control Background? CLEAR/WHITE (CLR/WHITE); Pregs Control Bar Appear? YES (CONTROL BAR)
[2017-07-24 05:05] LABS: Carbon Dioxide 20 mmol/L (22-29); Chloride 108 mmol/L (98-107); Potassium 3.2 mmol/L (3.5-5.1); Sodium 139 mmol/L (136-145)
[2017-07-24 05:06] LABS: ALT (SGPT) 43 U/L (8-55); AST (SGOT) 19 U/L (5-34); Alkaline Phosphatase 86 U/L (40-150); BUN (Urea Nitrogen) 7 mg/dL (7.0-18.7); Calc. Creatinine Clearance 0 mL/min (70-130); Calcium 8.9 mg/dL (7.8-10.44); Estimated GFR-MDRD Greater than 90; Globulin 3.2 g/dL (2.4-3.5); Glucose 117 mg/dL (70-105); Lipase 19 U/L (8-78); Protein, Total 7.2 g/dL (6.0-8.3)
[2017-07-24 06:45] LABS: Bilirubin, Total 0.3 mg/dL (0.2-1.2)
[2017-07-24] MEDS ORDERED: Sodium Chloride 0.9% 100 ML BAG ONE (07:32)
[2017-07-24] MEDS ORDERED: Sodium Chloride 0.9% 1,000 ML BAG ONE (07:32)
[2017-07-24] MEDS ORDERED: Piperacillin/Tazobactam 4.5 GM VIAL ONE (08:00)
--- NOTE | 2017-07-24 08:16 | RAD ---
FRONTAL RADIOGRAPH CHEST UPRIGHT AND SUPINE ABDOMEN AND PELVIS: Date: 07-24-17 Comparison: None. History: Abdominal pain. FINDINGS: There is no pneumothorax, pleural fluid, focal consolidation or alveolar edema. Upright imaging demonstrates no evidence for free intraperitoneal air or bowel obstruction. Clips in the right upper quadrant are noted, evidence of prior cholecystectomy. The bowel gas pattern is non obstructed. IMPRESSION: Unremarkable acute abdominal series. POS: [facility]
--- NOTE | 2017-07-24 08:18 | CT ---
PRELIMINARY REPORT/[facility]/EMERGENCY AFTER HOURS PROCEDURE: EXAM: CT Abdomen and Pelvis With Intravenous Contrast EXAM DATE/TIME: 07/24/2017 6:44 AM CLINICAL HISTORY: 32 years old, female; Pain; Abdominal pain; Generalized; Prior surgery; Surgery date: <1 month; Surg mariella type: S/P lap ramonita surgery 2 weeks ago; Abdominal pain since with a wbc 18,000; Patient HX: See above TECHNIQUE: Axial computed tomography images of the abdomen and pelvis with intravenous contrast. All CT scans a t this facility use one or more dose reduction techniques, viz.: automated exposure control; ma/kV a djustment per patient size (including targeted exams where dose is matched to indication; i.e. head) ; or iterative reconstruction technique. Coronal reformatted images were created and reviewed. CONTRAST: 96 mL of ISOVUE 370 administered intravenously. COMPARISON: No relevant prior studies available. FINDINGS: Lower thorax: Mild dependent changes are present in the lung bases. ABDOMEN: Liver: Unremarkable. No mass. Gallbladder and bile ducts: Status post cholecystectomy. No ductal dilation. Pancreas: Unremarkable. No mass. No ductal dilation. Spleen: Unremarkable. No splenomegaly. Adrenals: Unremarkable. No mass. Kidneys and ureters: Unremarkable. No solid mass. No hydronephrosis. Stomach and bowel: Unremarkable. No obstruction. No mucosal thickening. Appendix: The appendix is dilated up to 1 cm with intraluminal fluid and wall enhancement. Findings are compatible with appendicitis. PELVIS: Bladder: Unremarkable. No mass. Reproductive: Unremarkable as visualized. ABDOMEN and PELVIS: Intraperitoneal space: Unremarkable. No free air. No significant fluid collection. Bones/joints: No acute fracture. No dislocation. Soft tissues: Unremarkable. Vasculature: Unremarkable. No abdominal aortic aneurysm. Lymph nodes: Unremarkable. No enlarged lymph nodes. IMPRESSION: The appendix is dilated up to 1 cm with intraluminal fluid and wall enhancement. Findings are compat ible with appendicitis. Remainder of findings as described above. These findings were discussed with Dr. TESFAYE at 8:35 AM EST. Thank you for allowing us to participate in the care of your patient. Dictated and Authenticated by: Beverly Azul MD 07/24/2017 7:37 AM Central Time ([place] \T\ [place])\T\ [place]) FINAL REPORT CT ABDOMEN AND PELVIS WITH IV AND ORAL CONTRAST: Date: 07-24-17 Comparison: None. History: Abdominal pain, prior laparoscopic cholecystectomy, elevated white blood cell count. FINDINGS: The imaged lung bases are grossly unremarkable. No free intraperitoneal air noted. Cholecystectomy clips are present. Liver, spleen, pancreas, adrenal glands, and gallbladder appear u nremarkable. There is mild stranding of the presacral fat, etiology uncertain. No colonic wall thickening is seen in this region. No evidence for large or small bowel obstruction. The appendix is dilated, fluid filled, and demonstrates an enhancing thickened wall, compatible with acute appendicitis. No adjacent fluid collection or extraluminal gas noted. There is a circumaortic left renal vein. No lymphadenopathy is evident within the abdomen/pelvis. The osseous structures are grossly unremark able. IMPRESSION: 1. Evidence of acute appendicitis. Per the preliminary [facility] report, these findings were relayed to Francisco Tesfaye by Dr. Azul. Code QA POS: [facility]
[2017-07-24] MEDS ORDERED: Iopamidol 370 76% 100 ML VIAL ONE (09:30)
== END 2017-07-24 08:23 | disposition short-term general hospital (02) ==
LOC: MADERS 02:52
DX: K35.80 Unspecified acute appendicitis (principal)
CPT/HCPCS: 36415; 74022; 74177; 80053; 81001; 82150; 83605; 83690; 83880; 84703; 85025; 85652; 87040; 87077; 87086; 96361; 96374; 96375; J1885; J2270; J2405; J2543; J7050

== ENCOUNTER 2019-10-12 20:02 | Emergency (ER) | payer OTHER, SELFPAY ==
[2019-10-12] MEDS ORDERED: diphenhydrAMINE 25 MG CAP ONE (20:46)
[2019-10-12] MEDS ORDERED: predniSONE 20 MG TAB ONE (20:47)
== END 2019-10-12 20:49 | disposition home or self-care (01) ==
LOC: MADERS 20:02
DX: L50.9 Urticaria, unspecified (principal)
CPT/HCPCS: 99282; J7512; Q0163

== ENCOUNTER 2019-10-14 22:43 | Emergency (ER) | payer SELFPAY ==
[2019-10-14] MEDS ORDERED: Famotidine In NaCl 20 mg/50 ml Premix Bag ONE (23:03)
[2019-10-14] MEDS ORDERED: EPINEPHrine 1 MG/ML AMP ONE (23:03)
[2019-10-14] MEDS ORDERED: diphenhydrAMINE 50 MG/ML VIAL ONE (23:03)
== END 2019-10-15 02:09 | disposition home or self-care (01) ==
LOC: MADERS 22:43
DX: T78.2XXA Anaphylactic shock, unspecified, initial encounter (principal); L50.0 Allergic urticaria
CPT/HCPCS: 96372; 96374; 96375; J0171; J1200

== ENCOUNTER 2022-01-21 14:58 | Emergency (ER) | payer SELFPAY ==
[2022-01-21] MEDS ORDERED: Dicyclomine 10 MG CAP ONE (15:49)
[2022-01-21] MEDS ORDERED: Meclizine HCl 25 MG TAB ONE (15:49)
[2022-01-21] MEDS ORDERED: Ondansetron PF 4 MG/2 ML Vial ONE (15:49)
[2022-01-21] MEDS ORDERED: Sodium Chloride 0.9% 1,000 ML ONE (15:49)
[2022-01-21 16:03] LABS: #Basophils 0.1 thou/uL (0.0-0.2); #Eosinphils 0.5 thou/uL (0.0-0.7); #Lymphocytes 3.4 thou/uL (1.20-3.40); %Eosinophils 5.2 % (0.0-10.0); %Lymphocytes 34.1 % (21.0-51.0); %Monocytes 9.8 % (0.0-10.0); %Neutrophils 49.9 % (42.0-75.0); Hemoglobin 12.4 g/dL (12.0-16.0); Mean Corpuscular HGB CONC 31.5 g/dL (32.0-36.0); Mean Corpuscular Hemoglobin 26.1 pg (27.0-31.0); Mean Corpuscular Volume 82.9 fL (78.0-98.0); Platelet Count 342 thou/uL (130-400); RBC Distribution Width 13.1 % (11.5-14.5); Red Blood Cell (RBC) Count 4.74 mill/uL (4.20-5.40); White Blood Cell (WBC) Count 9.9 thou/uL (4.8-10.8)
[2022-01-21 16:18] LABS: ALT (SGPT) 25 U/L (8-55); AST (SGOT) 25 U/L (5-34); Albumin 3.8 g/dL (3.5-5.0); Alkaline Phosphatase 77 U/L (40-110); Anion Gap 15 mmol/L (10-20); BUN (Urea Nitrogen) 5 mg/dL (7.0-18.7); Bilirubin, Total 0.5 mg/dL (0.2-1.2); Calc. Creatinine Clearance 0 mL/min (70-130); Calcium 8.2 mg/dL (7.8-10.44); Carbon Dioxide 24 mmol/L (22-29); Chloride 103 mmol/L (98-107); Globulin 3.2 g/dL (2.4-3.5); Glucose 113 mg/dL (70-105); Lipase 12 U/L (8-78); Potassium 3.1 mmol/L (3.5-5.1); Sodium 139 mmol/L (136-145)
[2022-01-21] MEDS ORDERED: Potassium Chloride 20 MEQ TAB ONE (16:54)
== END 2022-01-21 17:05 | disposition home or self-care (01) ==
LOC: MADERS 14:58
DX: K52.9 Noninfective gastroenteritis and colitis, unspecified (principal); E87.6 Hypokalemia; H83.09 Labyrinthitis, unspecified ear
CPT/HCPCS: 80053; 83690; 85025; 96374; J2405; J7050

== ENCOUNTER 2022-10-12 12:39 | Emergency (ER) | payer SELFPAY ==
[2022-10-12 13:16] LABS: Pregnancy Test - Urine (BHCG) Negative (Negative); Specific Gravity 1.006 (1.002-1.036)
[2022-10-12 13:17] LABS: Pregu Control Background? CLEAR/WHITE (CLR/WHITE); Pregu Control Bar Appear? YES (CONTROL BAR)
[2022-10-12] MEDS ORDERED: Acetaminophen 500 MG TAB ONE (13:23)
[2022-10-12] MEDS ORDERED: Ibuprofen 800 MG TAB ONE (13:23)
== END 2022-10-12 14:20 | disposition home or self-care (01) ==
LOC: MADERS 12:39
DX: R50.9 Fever, unspecified (principal); J02.9 Acute pharyngitis, unspecified; R51.9 Headache, unspecified; R20.2 Paresthesia of skin; M79.10 Myalgia, unspecified site; Z20.822 Contact with and (suspected) exposure to COVID-19
CPT/HCPCS: 81025; 87081; 87430; 87804; 94760; 99283; U0003; U0005

== ENCOUNTER 2023-03-04 08:15 | Emergency (ER) | payer OTHER, SELFPAY | END 2023-03-04 09:02 | disposition home or self-care (01) | LOC: MADERS 08:15 | DX: S46.912A Strain of unspecified muscle, fascia and tendon at shoulder and upper arm level, left arm, initial encounter (principal); V89.2XXA Person injured in unspecified motor-vehicle accident, traffic, initial encounter ==

== ENCOUNTER 2023-10-09 16:46 | Emergency (ER) | payer SELFPAY ==
[2023-10-09] MEDS ORDERED: Ibuprofen 800 MG TAB ONE (17:27)
[2023-10-09 18:42] LABS: BHCG - Serum Negative (NEGATIVE); Pregs Control Background? CLEAR/WHITE (CLR/WHITE); Pregs Control Bar Appear? YES (CONTROL BAR)
[2023-10-09] MEDS ORDERED: Ondansetron PF 4 MG/2 ML Vial ONE (18:43)
[2023-10-09] MEDS ORDERED: Dicyclomine 20 MG/2 ML VIAL ONE (18:43)
[2023-10-09] MEDS ORDERED: Acetaminophen 500 MG TAB ONE (18:43)
[2023-10-09] MEDS ORDERED: Lactated Ringer's 1,000 ML ONE ×2 (18:44→19:46)
[2023-10-09 18:53] LABS: Band 2 % (5-11); Hemoglobin 13.8 g/dL (12.0-16.0); Lymphocytes 5 % (21-51); MDiff Complete? YES; Manual Diff?? YES; Mean Corpuscular HGB CONC 32.1 g/dL (32.0-36.0); Mean Corpuscular Hemoglobin 27.8 pg (27.0-31.0); Mean Corpuscular Volume 86.5 fl (78.0-98.0); Mean Platelet Volume 7.5 fL (7.4-10.4); Monocytes 2 % (0-10); Neutrophil 87 % (42-75); Platelet Adequacy Comment Appears Adequate; Platelet Count 357 10x3/uL (130-400); RBC Distribution Width 13.7 % (11.5-14.5); RBC Morph Comment Within Normal Limits; Reactive Lymphocytes 3 % (0-10); Red Blood Cell (RBC) Count 4.97 mill/uL (4.20-5.40); White Blood Cell (WBC) Count 21.6 10x3/uL (4.8-10.8)
[2023-10-09 18:54] LABS: ALT (SGPT) 30 U/L (8-55); AST (SGOT) 29 U/L (5-34); Alkaline Phosphatase 72 U/L (40-110); Anion Gap 16 mmol/L (10-20); BUN (Urea Nitrogen) 4 mg/dL (7.0-18.7); Bilirubin, Total 0.7 mg/dL (0.2-1.2); Calc. Creatinine Clearance 0 mL/min (70-130); Calcium 9.1 mg/dL (7.8-10.44); Carbon Dioxide 20 mmol/L (22-29); Chloride 102 mmol/L (98-107); Estimated GFR 97; Globulin 3.5 g/dL (2.4-3.5); Glucose 136 mg/dL (70-105); Lipase 5 U/L (8-78); Magnesium 1.7 mg/dL (1.6-2.6); Potassium 3.6 mmol/L (3.5-5.1); Protein, Total 7.5 g/dL (6.0-8.3); Sodium 134 mmol/L (136-145)
[2023-10-09] MEDS ORDERED: Bicillin LA 1.2 MILLION UNITS/2 ML SYRINGE ONE (19:07)
[2023-10-09 19:24] LABS: SARS-CoV-2 NAA Rapid Test Not Detected (NotDetected)
[2023-10-09 21:30] LABS: Lactic Acid 1.2 mmol/L (0.5-2.2)
== END 2023-10-09 22:00 | disposition home or self-care (01) ==
LOC: MADERS 16:46
DX: J02.0 Streptococcal pharyngitis (principal)
CPT/HCPCS: 36415; 80053; 83605; 83690; 83735; 84703; 85025; 87040; 87430; 93005; 94760; 96361; 96372; 96374; J0561; J2405; J7120

== ENCOUNTER 2023-10-11 11:37 | Emergency (ER) | payer SELFPAY ==
[2023-10-11] MEDS ORDERED: Ketorolac Tromethamine 30 MG (1 mL) VIAL ONE (12:00)
[2023-10-11] MEDS ORDERED: Acetaminophen 500 MG TAB ONE (12:00)
== END 2023-10-11 12:20 | disposition home or self-care (01) ==
LOC: MADERS 11:37
DX: J02.0 Streptococcal pharyngitis (principal)
CPT/HCPCS: 96372; 99282; J1885

== ENCOUNTER 2023-11-13 17:14 | Outpatient (CLI) | payer SELFPAY | END 2023-11-13 17:15 | disposition home or self-care (01) | LOC: MADRAD 17:14 | PROVIDERS: ATTEND Nurse Practitioner Family | DX: M79.671 Pain in right foot (principal) ==